=== PATIENT | female | born 1985 | race Caucasian/White ===

== ENCOUNTER 2016-12-12 12:59 | Emergency (ER) | payer OTHER ==
[~2016-12-12 12:59] MED LIST: ALBUTEROL0.63 MG/1 INH; CATAFLAM50 MG PO; COLACE100 M1 PO; NORCO 5-325 TA1 EACH PO; NORCO 5/325 TAB1 TAB PO; TYLENOL325 M2 PO; VENTOLIN HFA18 G2 PO
[2016-12-12] MEDS ORDERED: NO HOME MEDICATION XX (15:01)
== END 2016-12-12 16:20 ==
LOC: EDMED 12:59
DX: M25.562 Pain in left knee (principal); J45.909 Unspecified asthma, uncomplicated; Z79.51 Long term (current) use of inhaled steroids
CPT/HCPCS: J1885